=== PATIENT | female | born 1980 | race Caucasian/White ===

== ENCOUNTER 2023-07-18 12:10 | Day surgery (SDC) | payer BC, SELFPAY ==
[2023-07-11 12:30] VITALS: BP 109/67; PULSE 66; O2SAT 98
--- NOTE | 2023-07-18 | US_ITS ---
The [address] [address] Patient Name: INOCENTE ORDOÑEZ MRN: [id number] date: 1980 Sex: F Assigned Patient Location: [place] Current Patient Location: Accession/Order Number: [id number] Exam Date: 07/18/2023 12:40 Report Date: 07/18/2023 14:12 At the request of: TORY BERKOWITZ Procedure: US biopsy FNA add lesion EXAMINATION: US biopsy thyroid, US biopsy FNA add lesion HISTORY: THYROID BIOPSY COMPARISON: No relevant comparison available. TECHNIQUE: After obtaining informed consent, an ultrasound-guided biopsy was performed in the usual sterile manner. FINDINGS: Nodule 1: IMAGING: Ultrasound BIOPSY NEEDLE: 25-gauge 2 inch SPECIMEN TYPE, #, LOCATION: 3 fine-needle aspirates right superior lateral nodule MEDICATION: 2 cc 1% buffered lidocaine COMPLICATIONS: None. LABORATORY: OTHER: Negative. Nodule 2: IMAGING: Ultrasound BIOPSY NEEDLE: 25-gauge 2 inch SPECIMEN TYPE, #, LOCATION: 3 fine-needle aspirates right inferior medial nodule MEDICATION: 2 cc 1% buffered lidocaine COMPLICATIONS: None. LABORATORY: OTHER: Negative. US/US biopsy FNA add lesion IMPRESSION: Uneventful ultrasound guided biopsy of 2 separate right thyroid nodules. The patient was instructed to obtain follow up care and biopsy results from the referring physician. Electronically authenticated by: ADEBAYO VALDEZ Date: 07/18/2023 14:12
--- NOTE | 2023-07-18 | US_ITS ---
The [address] [address] Patient Name: INOCENTE ORDOÑEZ MRN: [id number] date: 1980 Sex: F Assigned Patient Location: [place] Current Patient Location: Accession/Order Number: [id number] Exam Date: 07/18/2023 12:40 Report Date: 07/18/2023 14:12 At the request of: TORY BERKOWITZ Procedure: US biopsy thyroid EXAMINATION: US biopsy thyroid, US biopsy FNA add lesion HISTORY: THYROID BIOPSY COMPARISON: No relevant comparison available. TECHNIQUE: After obtaining informed consent, an ultrasound-guided biopsy was performed in the usual sterile manner. FINDINGS: Nodule 1: IMAGING: Ultrasound BIOPSY NEEDLE: 25-gauge 2 inch SPECIMEN TYPE, #, LOCATION: 3 fine-needle aspirates right superior lateral nodule MEDICATION: 2 cc 1% buffered lidocaine COMPLICATIONS: None. LABORATORY: OTHER: Negative. Nodule 2: IMAGING: Ultrasound BIOPSY NEEDLE: 25-gauge 2 inch SPECIMEN TYPE, #, LOCATION: 3 fine-needle aspirates right inferior medial nodule MEDICATION: 2 cc 1% buffered lidocaine COMPLICATIONS: None. LABORATORY: OTHER: Negative. US/US biopsy thyroid IMPRESSION: Uneventful ultrasound guided biopsy of 2 separate right thyroid nodules. The patient was instructed to obtain follow up care and biopsy results from the referring physician. Electronically authenticated by: ADEBAYO VALDEZ Date: 07/18/2023 14:12
[2023-07-18] MEDS: LIDOCAINE HCL 10 ML, SODIUM BICARBONATE 1 MEQ INJ (13:00)
== END 2023-07-18 13:27 | disposition home or self-care (01) ==
LOC: US 12:10
PROVIDERS: Radiology Diagnostic Radiology; Visit Provider Otolaryngology
DX: E04.1 Nontoxic single thyroid nodule (principal)
CPT/HCPCS: 10005; 10006; 88173